=== PATIENT | female | born 1990 | race Native Hawaiian/Other Pacific Islander ===

== ENCOUNTER 2017-01-29 04:32 | Emergency (ER) | payer OTHER, MEDICAID ==
[2017-01-29 05:41] LABS: Basophils % (Auto) 0.3 % (0.0-1.8); Eosinophils % (Auto) 0.9 % (0.0-4.3); Hematocrit 37.6 % (30.3-42.9); Mean Corpuscular HGB Conc 35 % (30-34); Mean Corpuscular Hemoglobin 30 pg (28-32); Mean Corpuscular Volume 87 fl (79-97); Platelet Count 250 K/mm3 (140-440); Red Blood Count 4.33 M/mm3 (3.65-5.03); Red Cell Distribution Width 13.8 % (13.2-15.2); White Blood Count 6.4 K/mm3 (4.5-11.0)
[2017-01-29 05:56] LABS: Alanine Aminotransferase 10 units/L (7-56); Albumin 3.9 g/dL (3.9-5); Albumin/Globulin Ratio 1.1 %; Alkaline Phosphatase 51 units/L (35-129); Anion Gap 19 mmol/L; BUN/Creatinine Ratio 15; Blood Urea Nitrogen 6 mg/dL (7-17); Carbon Dioxide 21 mmol/L (22-30); Chloride 101.7 mmol/L (98-107); Glucose 99 mg/dL (65-100); Lipase 15 units/L (13-60); Potassium 3.7 mmol/L (3.6-5.0); Sodium 138 mmol/L (137-145); Total Protein 7.4 g/dL (6.3-8.2)
--- NOTE | 2017-01-29 09:33 | Emergency Department Report ---
Chief Complaint: Abdominal Pain Stated Complaint: LOWER ABD PAIN Time Seen by Provider: 01/29/17 09:28 - HPI History of Present Illness: PT states she is and bleeding. PT states she has been passing tissue. PT's first manufacturing management associate appoint is with [facility]. - ROS Review of Systems: - n/v + vaginal bleeding - Exam Vital Signs: Vital Signs 01/29/17 01/29/17 04:35 08:37 Temperature 99.2 F 98.4 F Pulse Rate 84 75 Respiratory 16 Rate Blood Pressure 125/62 119/65 O2 Sat by Pulse 98 100 Oximetry Physical Exam: pt looks well, non toxic gcs 15 steady gait abd soft and non tender MSE screening note: Focused history and physical exam performed. Due to findings the following was ordered: ultrasound ED Medical Decision Making - Lab Data Result diagrams: 01/29/17 05:01 01/29/17 05:01 ED Disposition for MSE Condition: Stable Instructions: Abdominal Pain (ED) Referrals: PRIMARY CARE [Primary Care Provider] - 3-5 Days
[2017-01-29 10:22] LABS: Bilirubin,Urine NEG (Negative); Blood,Urine LG (Negative); Ketones,Urine NEG (Negative); Leukocyte Esterase,Urine NEG (Negative); Mucus,Urine FEW /HPF; Nitrite,Urine NEG (Negative); Protein,Urine <15 mg/dL mg/dL (Negative); Urobilinogen,Urine < 2.0 mg/dL (<2.0)
--- NOTE | 2017-01-29 10:31 | Ultrasound Report ---
Pelvic and transvaginal sonography: History: Bleeding. Findings: Uterus measures 8.8 x 4.8 x 6 cm. Endometrial thickness 15.9 mm. No mass in the endometrium. No fluid. Right ovary 2.4 x 1.3 x 2.4 cm. No mass. Left ovary 2.2 x 1.8 x 1.9 cm. Complex cyst of the left lunate is 1.6 cm and a simple cyst of the left ovary measures 4.1 cm. Impression: No intrauterine gestation. Thick endometrium. Complex left ovarian cyst with a single simple cyst.
--- NOTE | 2017-01-29 14:09 | Emergency Department Report ---
HPI - General Chief Complaint: Abdominal Pain Time Seen by Provider: 01/29/17 09:28 - HPI HPI: This is a 26-year-old female presents to the emergency department with a complaint of some lower abdominal discomfort and vaginal bleeding that started last night. She says that the vaginal bleeding increased this morning and says that she feels that she passed some clots and/or tissue while using the bathroom here in the emergency department. When asked what brought her to the emergency department today, the patient says "I think I just had a miscarriage." She believes himself to be about 7 weeks and says that her last menstrual cycle was about 2 or 3 months ago. She has an appointment with my [facility] on the and usually sees that [facility] group for her pregnancies but has not yet seen them regarding this . She has not taken anything for her symptoms prior to presentation. She otherwise denies any past medical history. ED Past Medical Hx - Past Medical History Previous Medical History?: No Hx Hypertension: No Hx Congestive Heart Failure: No Hx Diabetes: No Hx Deep Vein Thrombosis: No Hx Renal Disease: No Hx Sickle Cell Disease: No Hx Seizures: No Hx Asthma: No Hx COPD: No Hx HIV: No - Surgical History Past Surgical History?: No - Social History Smoking Status: Former Smoker Substance Use Type: None - Medications Home Medications: Home Medications Medication Instructions Recorded Confirmed Last Taken Type Acetaminophen/Codeine [Tylenol 1 tab PO Q6H PRN #15 tab 04/26/15 Unknown Rx /Codeine # 3 tab] Acyclovir [Zovirax Tab] 400 mg PO Q8H #30 tab 04/26/15 Unknown Rx Fluconazole [Diflucan TAB] 150 mg PO ONCE #2 tablet 04/26/15 Unknown Rx metroNIDAZOLE [Flagyl] 500 mg PO Q12HR #14 tab 04/26/15 Unknown Rx ED Review of Systems ROS: Stated complaint: LOWER ABD PAIN Other details as noted in HPI Comment: All other systems reviewed and negative Constitutional: denies: chills, fever Eyes: denies: eye pain, eye discharge, vision change ENT: denies: ear pain, throat pain Respiratory: denies: cough, shortness of breath, wheezing Cardiovascular: denies: chest pain, palpitations Gastrointestinal: abdominal pain. denies: nausea Genitourinary: other (vaginal bleeding). denies: urgency, dysuria, discharge Musculoskeletal: denies: back pain, joint swelling, arthralgia Skin: denies: rash, lesions Neurological: denies: headache, weakness, paresthesias Physical Exam - Physical Exam Vital Signs: Vital Signs 01/29/17 01/29/17 04:35 08:37 Temperature 99.2 F 98.4 F Pulse Rate 84 75 Respiratory 16 Rate Blood Pressure 125/62 119/65 O2 Sat by Pulse 98 100 Oximetry Physical Exam: GENERAL: The patient is well-developed well-nourished. HENT: Normocephalic. Atraumatic. Patient has moist mucous membranes. EYES: Extraocular motions are intact. Pupils equal reactive to light bilaterally. NECK: Supple. Trachea is midline. CHEST/LUNGS: Clear to auscultation. There is no respiratory distress noted. HEART/CARDIOVASCULAR: Regular. There is no tachycardia. There is no gallop rub or murmur. ABDOMEN: Abdomen is soft, nontender. Patient has normal bowel sounds. There is no abdominal distention. SKIN: Skin is warm and dry. NEURO: The patient is awake, alert, and oriented. The patient is cooperative. The patient has no focal neurologic deficits. The patient has normal speech. MUSCULOSKELETAL: There is no tenderness or deformity. There is no limitation range of motion. There is no evidence of acute injury. ED Course Vital Signs 01/29/17 01/29/17 04:35 08:37 Temperature 99.2 F 98.4 F Pulse Rate 84 75 Respiratory 16 Rate Blood Pressure 125/62 119/65 O2 Sat by Pulse 98 100 Oximetry - Consultations Consultation #1: I spoke to Dr. High, the [employer] instrumentation engineering technician for [facility]. She has set the patient up for an appointment with Dr. Lewis tomorrow morning at 9 AM at the [facility]. 01/29/17 14:08 ED Medical Decision Making - Lab Data Result diagrams: 01/29/17 05:01 01/29/17 05:01 - Radiology Data Radiology results: report reviewed Pelvic and transvaginal sonography: History: Bleeding. Findings: Uterus measures 8.8 x 4.8 x 6 cm. Endometrial thickness 15.9 mm. No mass in the endometrium. No fluid. Right ovary 2.4 x 1.3 x 2.4 cm. No mass. Left ovary 2.2 x 1.8 x 1.9 cm. Complex cyst of the left lunate is 1.6 cm and a simple cyst of the left ovary measures 4.1 cm. Impression: No intrauterine gestation. Thick endometrium. Complex left ovarian cyst with a single simple cyst. Transcribed By: PTP Dictated By: JUDIT MATTSON MD Electronically Authenticated By: JUDIT MATTSON MD Signed Date/Time: 01/29/17 1026 - Medical Decision Making 26-year-old female presents to the emergency department with some vaginal bleeding and some lower abdominal discomfort with a positive home test. Labs show a beta hCG of 28,000. Ultrasound shows no intrauterine gestation but a thickened endometrium and a left complex cyst with a smaller simple cyst. Given that the patient has been having the vaginal bleeding and feels that she may have passed some type of tissue, it appears more consistent with a miscarriage. However since the patient did have a home test with some abdominal discomfort and no intrauterine gestation seen, there is concern to rule out an ectopic. I spoke to the [facility] service that the patient follows with, Dr. High, and the patient has been set up for an appointment with one of her partners tomorrow morning at 9 AM and otherwise they feel she is safe for discharge home. The patient was given ectopic precautions and understands to return to the emergency Department with any worsening of her bleeding, increased abdominal pain or any acute distress. - Differential Diagnosis , threatened miscarriage, spontaneous miscarriage, ectopic Critical Care Time: No Critical care attestation.: If time is entered above; I have spent that time in minutes in the direct care of this critically ill patient, excluding procedure time. ED Disposition Clinical Impression: Threatened Disposition: DC-01 TO HOME OR SELFCARE Is pt being admited?: No Condition: Stable Instructions: Spontaneous Miscarriage (ED), Threatened Miscarriage (ED) Additional Instructions: Please follow up with [facility], Dr. Carolina, tomorrow at 9 AM at their [place] office. It appears as if you have had a spontaneous miscarriage but he will need to get reevaluated and make sure that it is not an ectopic . He should return to the emergency department with any severe and/or sharp abdominal pain, worsening of your vaginal bleeding, or any acute distress. Otherwise follow-up with the [facility] without fail. Referrals: PREET LEWIS MD [Staff Physician] - 01/30/17 9:00 am Time of Disposition: 14:08
[2017-01-29 14:12] VITALS: BP 124/75
== END 2017-01-29 14:12 | disposition home or self-care (01) ==
LOC: ED 04:32
DX: O03.9 Complete or unspecified spontaneous abortion without complication (principal); Z87.891 Personal history of nicotine dependence; Z3A.01 Less than 8 weeks gestation of pregnancy
CPT/HCPCS: 36415; 76801; 76817; 80053; 81001; 83690; 84702; 85025; 86850; 86900; 86901; 99284